=== PATIENT | male | born 1955 | race Caucasian/White ===

== ENCOUNTER 2016-10-01 08:00 | Outpatient (CLI) | payer MEDICAID | END 2016-10-01 08:01 | disposition home or self-care (01) | DX: R19.4 Change in bowel habit (principal) ==

== ENCOUNTER 2017-01-27 13:36 | Outpatient (CLI) | payer MEDICAID | END 2017-01-27 13:37 | disposition home or self-care (01) | DX: D50.9 Iron deficiency anemia, unspecified (principal) ==

== ENCOUNTER 2017-02-26 08:33 | Day surgery (SDC) | payer MEDICAID ==
[2017-02-26] MEDS ORDERED: LACTATED RINGERS 1,000 ML IV ONE ×2 (09:15→10:09)
[2017-02-26] MEDS ORDERED: MIDAZOLAM 2 MG/2 ML VIAL IVP ONE (09:41)
[2017-02-26] MEDS ORDERED: ONDANSETRON 4 MG/2 ML VIAL IVP ONE (09:41)
[2017-02-26] MEDS ORDERED: fentaNYL 100 MCG/2 ML VIAL IVP ONE (09:41)
[2017-02-26 11:24] VITALS: BP 113/82
== END 2017-02-26 08:34 | disposition home or self-care (01) ==
LOC: SDS 08:33
PROVIDERS: ATTEND Surgery
PROC: 0DB78ZX Excision of Stomach, Pylorus, Via Natural or Artificial Opening Endoscopic, Diagnostic (ICD-10-PCS; principal; 2017-02-26 09:45)
PROC: 0DBH8ZX Excision of Cecum, Via Natural or Artificial Opening Endoscopic, Diagnostic (ICD-10-PCS; 2017-02-26 09:45)
DX: R19.5 Other fecal abnormalities (principal); Z80.0 Family history of malignant neoplasm of digestive organs; K21.9 Gastro-esophageal reflux disease without esophagitis; R10.9 Unspecified abdominal pain; R19.7 Diarrhea, unspecified; I10 Essential (primary) hypertension; D50.9 Iron deficiency anemia, unspecified; K57.30 Diverticulosis of large intestine without perforation or abscess without bleeding; R12 Heartburn; K20.9 Esophagitis, unspecified; K44.9 Diaphragmatic hernia without obstruction or gangrene; R19.4 Change in bowel habit; Z90.49 Acquired absence of other specified parts of digestive tract; Z82.49 Family history of ischemic heart disease and other diseases of the circulatory system; Z88.5 Allergy status to narcotic agent; K64.8 Other hemorrhoids
CPT/HCPCS: 43239; 45380; 87081; J7120; 88305

== ENCOUNTER 2017-07-10 16:56 | Outpatient (CLI) | payer MEDICAID ==
--- NOTE | 2017-07-11 08:36 | XRAY Report ---
SUPINE ABDOMEN: 07/10/2017 CLINICAL INDICATION: History of GI camera ingestion 3 weeks ago, check for retention. FINDINGS: Supine views of the abdomen demonstrate the camera in the sigmoid colon, in the mid pelvis . Postoperative changes are noted in the abdomen. The bowel gas pattern is normal. IMPRESSION: GI CAMERA IN THE SIGMOID COLON. JOB #: [id number] EXT JOB #:[id number]
== END 2017-07-10 16:57 | disposition home or self-care (01) ==
LOC: DI 16:56
PROVIDERS: ATTEND Internal Medicine Gastroenterology
DX: T18.4XXD Foreign body in colon, subsequent encounter (principal)
CPT/HCPCS: 74000

== ENCOUNTER 2017-09-30 14:28 | Outpatient (CLI) | payer MEDICAID | END 2017-09-30 14:29 | disposition critical access hospital (66) | LOC: EMS 14:28 | PROVIDERS: ATTEND Surgery | DX: R42 Dizziness and giddiness (principal); H53.9 Unspecified visual disturbance | CPT/HCPCS: A0425; A0429 ==

== ENCOUNTER 2017-09-30 14:51 | Observation (INO) | payer MEDICAID ==
--- NOTE | 2017-09-30 15:09 | ED Physician Documentation ---
PD HPI FOCAL NEURO - Stated complaint Stated Complaint: DIZZY - History obtained from History obtained from: Patient, EMS - History of Present Illness Timing - onset: Today Timing - duration: Minutes Timing - details: Abrupt onset, Now resolved Severity of deficit: Moderate Weakness: No: Face, Arm, Hand, Leg, Foot, Right, Left Numbness: No: Face, Arm, Hand, Leg, Foot, Right, Left Associated symptoms: No: Nausea / vomiting Contributing factors: negative: Anticoagulated Baseline status: positive: A&OX3, ambulatory, indep Similar symptoms before: Has not had sx before Recently seen: Other (61-year-old male was seen in his computer when he developed multiple images of everything. He noticed this particularly bad for about 10 minutes and he became concerned and called 911.The patient is being evaluated for anemia.) - Additional information Additional information: The patient was in the library at the time of this incident occurred in the library as he was logging off of his computer. He does note that he saw multiple images he himself did not notice any weakness on one side or the other. The nurse on initial evaluation here did note the patient had some subtle weakness to the left foot and a subtle left facial droop. I did witness this left facial droop which was initially present when I walked into the room and resolved before my evaluation was done. The patient also notes that he has felt some hardness to the heel of his left foot for the past week and he has had some numbness under his lip. Review of Systems Constitutional: denies: Fever, Chills, Myalgias Eyes: reports: Other (blurring of the vision) Ears: denies: Loss of hearing, Ear pain Nose: denies: Rhinorrhea / runny nose, Congestion Throat: denies: Sore throat Cardiac: denies: Chest pain / pressure, Palpitations Respiratory: denies: Dyspnea, Cough GI: denies: Nausea, Vomiting : denies: Dysuria Skin: denies: Rash Musculoskeletal: denies: Neck pain, Back pain, Extremity pain Neurologic: denies: Generalized weakness, Focal weakness, Numbness, Difficulty speaking, Syncope, Seizure, Confused, Altered mental status, Headache, Head injury, LOC PD PAST MEDICAL HISTORY - Past Medical History Cardiovascular: Hypertension Respiratory: None Endocrine/Autoimmune: None GI: Other : None HEENT: Other Psych: Depression Musculoskeletal: None Derm: Psoriasis - Present Medications Home Medications: Ambulatory Orders Medication Instructions Recorded Confirmed Lisinopril 20 mg PO DAILY 02/25/17 09/30/17 - Allergies Allergies/Adverse Reactions: Allergies Allergy/AdvReac Type Severity Reaction Status Date / Time morphine Allergy Unknown Verified 09/30/17 14:58 - Social History Does the pt smoke?: No Smoking Status: Never smoker PD ED PE NORMAL - Vitals Vital signs reviewed: Yes (hypertensive ) - General General: Alert and oriented X 3, Well developed/nourished, Other (The patient appears anxious) - HEENT HEENT: Atraumatic, PERRL, EOMI - Neck Neck: Supple, no meningeal sign, No bony TTP - Cardiac Cardiac: RRR, Other (2/6 holosystolic murmer at LSB) - Respiratory Respiratory: No respiratory distress, Clear bilaterally - Abdomen Abdomen: Soft, Non tender - Back Back: No CVA TTP, No spinal TTP - Derm Derm: Normal color, Warm and dry, No rash - Extremities Extremities: No deformity, No edema - Neuro Neuro: Alert and oriented X 3, sales promotion coordinator 2-12 intact, No motor deficit, No sensory deficit, Normal speech Eye Opening: Spontaneous Motor: Obeys Commands Verbal: Oriented GCS Score: 15 - Psych Psych: Normal mood, Normal affect NIHSS - Time Time: 15:00 - Level of Consciousness Level of consciousness: (0) Alert, Keenly responsive LOC Questions: (0) Answers both Q's correct LOC Commands: (0) Performs both correctly - Gaze Best Gaze: (0) Normal - Visual Visual: (0) No loss - Facial Palsy Facial Palsy: (0) Normal, symmetrical movement - Motor Arms (both separate) Motor Arm (right): (0) No drift Motor Arm (left): (0) No drift - Motor Legs (both separate) Motor Leg (right): (0) No drift Motor Leg (left): (0) No drift - Limb Ataxia Limb Ataxia: (0) Absent - Sensory Sensory: (0) Normal - Best Language Best Language: (0) No aphasia - Dysarthria Dysarthria: (0) Normal - Extinction and Inattention (formally neg Extinction and inattention: (0) No abnormality - Total Score/Results Total Score/Result: 0 Results - Vitals Vitals: Vital Signs - 24 hr 01/11/1609/30/17 09/30/17 14:52 15:39 16:26 Temperature 36.6 C 36.9 C 36.8 C Heart Rate 85 84 82 Respiratory 16 14 18 Rate Blood Pressure 180/97 H 164/94 H 157/90 H O2 Saturation 100 100 99 09/30/17 17:56 Temperature Heart Rate 108 H Respiratory 27 H Rate Blood Pressure 152/80 H O2 Saturation 100 Oxygen O2 Source Room air - Labs Labs: Laboratory Tests 09/30/17 09/30/17 09/30/17 15:06 15:06 15:06 WBC 11.7 H RBC 5.03 Hgb 10.4 L Hct 33.8 L MCV 67.2 L MCH 20.7 L MCHC 30.8 L RDW 18.4 H Plt Count 365 MPV 7.5 Neut # 6.4 Lymph # 4.2 H Rankin # 1.0 Eos # 0.0 Baso # 0.0 Absolute Nucleated RBC 0.00 Nucleated RBC % 0.0 Manual Slide Review Indicated WBC Morphology 2+ REACTIVE LYMPHS Platelet Estimate NORMAL (130-450,000) Platelet Morphology 1+ LARGE PLATELETS RBC Morph Micro Appear 1+ MACROCYTOSIS Sodium 136 Potassium 3.7 Chloride 104 Carbon Dioxide 23 Anion Gap 9.0 BUN 13 Creatinine 0.8 Estimated GFR (MDRD) 98 Glucose 110 H Calcium 9.0 Total Bilirubin 0.7 AST 25 ALT 22 Alkaline Phosphatase 95 Troponin I < 0.04 Total Protein 7.7 Albumin 4.6 Globulin 3.1 Albumin/Globulin Ratio 1.5 Lipase 21 L Urine Color Urine Clarity Urine pH Ur Specific [place] Urine Protein Urine Glucose (UA) Urine Ketones Urine Occult Blood Urine Nitrite Urine Bilirubin Urine Urobilinogen Ur Leukocyte Esterase Ur Microscopic Review Urine Culture Comments 09/30/17 15:35 WBC RBC Hgb Hct MCV MCH MCHC RDW Plt Count MPV Neut # Lymph # Rankin # Eos # Baso # Absolute Nucleated RBC Nucleated RBC % Manual Slide Review WBC Morphology Platelet Estimate Platelet Morphology RBC Morph Micro Appear Sodium Potassium Chloride Carbon Dioxide Anion Gap BUN Creatinine Estimated GFR (MDRD) Glucose Calcium Total Bilirubin AST ALT Alkaline Phosphatase Troponin I Total Protein Albumin Globulin Albumin/Globulin Ratio Lipase Urine Color YELLOW Urine Clarity CLEAR Urine pH 6.0 Ur Specific [place] 1.010 Urine Protein NEGATIVE Urine Glucose (UA) NEGATIVE Urine Ketones NEGATIVE Urine Occult Blood NEGATIVE Urine Nitrite NEGATIVE Urine Bilirubin NEGATIVE Urine Urobilinogen 0.2 (NORMAL) Ur Leukocyte Esterase NEGATIVE Ur Microscopic Review NOT INDICATED Urine Culture Comments NOT INDICATED - Rads (name of study) CT head without Radiology: Prelim report reviewed (Impression: Negative nonenhanced head CT.), EMP read indepedently, See rad report PD MEDICAL DECISION MAKING - ED course Complexity details: reviewed old records, reviewed results, re-evaluated patient , considered differential, d/w patient ED course: 61-year-old male with subtle signs of TIA with visual disturbance and left- sided weakness has resolved his symptoms. CT is without evidence of bleeding. Rhythm is sinus blood pressure is mildly elevated. Dr. Dawn is consulted in the case and graciously agrees to care for the patient in the hospital . Departure - Departure Disposition: ED Place in Observation Clinical Impression: Transient ischemic attack (TIA) Qualifiers: Transient cerebral ischemia type: unspecified Qualified Code(s): G45.9 - Transient cerebral ischemic attack, unspecified Condition: Stable
[2017-09-30 15:18] LABS: BASOPHILS % (AUTO) 0.2 %; EOSINOPHILS % (AUTO) 0.4 %; HGB - HEMOGLOBIN 10.4 g/dL (14.0-18.0); LYMPHOCYTES # (AUTO) 4.2 10^3/uL (1.5-3.5); LYMPHOCYTES % (AUTO) 36.1 %; MEAN CORPUSCULAR HEMOGLOBIN 20.7 pg (27.0-31.0); MEAN CORPUSCULAR HGB CONC 30.8 g/dL (32.0-36.0); MEAN CORPUSCULAR VOLUME 67.2 fL (80.0-94.0); MEAN PLATELET VOLUME 7.5 fL (7.4-11.4); MONOCYTES % (AUTO) 8.2 %; NEUTROPHILS # (AUTO) 6.4 10^3/uL (1.5-6.6); NEUTROPHILS % (AUTO) 55.1 %; PLT - PLATELET COUNT 365 10^3/uL (130-450); RED BLOOD COUNT 5.03 10^6/uL (4.70-6.10); RED CELL DISTRIBUTION WIDTH 18.4 % (12.0-15.0); WHITE BLOOD COUNT 11.7 x10^3/uL (4.8-10.8)
[2017-09-30 15:21] LABS: ALBUMIN 4.6 g/dL (3.2-5.5); ALBUMIN/GLOBULIN RATIO 1.5 (1.0-2.2); BILIRUBIN,TOTAL 0.7 mg/dL (0.2-1.0); CREATININE 0.8 mg/dL (0.6-1.2); TOTAL PROTEIN 7.7 g/dL (6.7-8.2)
--- NOTE | 2017-09-30 15:40 | CT Preliminary Report ---
Exam: CT HEAD W/O IMPRESSION: Negative nonenhanced head CT. [facility] SITE ID: [id number]
--- NOTE | 2017-09-30 15:40 | CT Report ---
EXAM: CT HEAD EXAM DATE: 09/30/2017 03:21 PM. CLINICAL HISTORY: Stroke symptoms . COMPARISON: 01/20/2011. TECHNIQUE: Multiaxial CT images were obtained from the foramen magnum to the vertex. Reformats: Coron al. IV contrast: None. In accordance with CT protocol optimization, one or more of the following dose reduction techniques w ere utilized for this exam: automated exposure control, adjustment of mA and/or KV based on patient s ize, or use of iterative reconstructive technique. FINDINGS: Parenchyma: No intraparenchymal hemorrhage. No evidence of mass, midline shift, or CT findings of inf arction. Florez-white differentiation is distinct. Extraaxial Spaces: Normal for age. No subdural or epidural collections identified. Ventricles: Normal in size and position. Sinuses and Orbits: Imaged paranasal sinuses, orbits, and mastoids show no significant abnormality. Bones: No evidence of fracture or calvarial defect. Other: None. IMPRESSION: Negative nonenhanced head CT. [facility] Referring Provider Line: [phone] SITE ID: [id number]
[2017-09-30 15:53] LABS: PLATELET MORPHOLOGY 1+ LARGE PLATELETS (NORMAL)
[2017-09-30 15:54] LABS: PLATELET ESTIMATE, MANUAL NORMAL (130-450,000) (NORMAL)
[2017-09-30 16:00] LABS: BILIRUBIN,URINE NEGATIVE (NEGATIVE); GLUCOSE, URINE (UA) NEGATIVE (NEGATIVE); KETONES,URINE (UA) NEGATIVE (NEGATIVE); LEUKOCYTE ESTERASE, URINE NEGATIVE (NEGATIVE); NITRITE,URINE NEGATIVE (NEGATIVE); OCCULT BLOOD,URINE NEGATIVE (NEGATIVE); PROTEIN,URINE NEGATIVE (NEGATIVE); UROBILINOGEN,URINE 0.2 (NORMAL) E.U./dL (NORMAL)
[2017-09-30 16:07] LABS: CLARITY,URINE CLEAR (CLEAR)
[2017-09-30] MEDS ORDERED: TEMAZEPAM 15 MG CAPSULE PO PRN (19:40)
[2017-09-30] MEDS ORDERED: SODIUM CHLORIDE FLUSH 0.9% 10 ML SYRINGE IVP PRN (19:40)
[2017-09-30] MEDS ORDERED: ONDANSETRON ODT 4 MG TABLET TL PRN (19:40)
[2017-09-30] MEDS ORDERED: ENOXAPARIN 40 MG/0.4 ML SYRINGE SUBQ SCH (19:45)
[2017-09-30] MEDS ORDERED: SODIUM CHLORIDE 0.9% 1,000 ML IV SCH (20:00)
[2017-09-30] MEDS: ASPIRIN EC 325 MG TABLET PO SCH (21:37)
[2017-09-30] MEDS ORDERED: SODIUM CHLORIDE FLUSH 0.9% 10 ML SYRINGE IVP SCH (22:00)
--- NOTE | 2017-09-30 23:22 | HISTORY & PHYSICAL EXAMINATION ---
Chief Complaint - Chief Complaint Chief Complaint: Altered mental status History of Present Illness - Admitted From Admitted From:: Home - History of Present Illness HPI Comment/Other: Mr. Kyle Benson is a very pleasant 61-year-old male with a history of acute visual disturbances today while at the library. These were also associated with a left-sided facial droop and left leg weakness. The patient was at the library, sitting down and felt a menendez in his head. Everything went black, and he had severe diplopia with the other associated symptoms noted above.The patient called for help and was taken via EMS to the [facility] emergency department. The symptoms all resolved within about 1 hour. History - Past Medical History Cardiovascular: reports: Hypertension Respiratory: reports: None Neuro: reports: None Endocrine/Autoimmune: reports: None GI: reports: Other MULTI CARE TECHNICIAN: reports: None : reports: Other (The patient has hadIron deficiency anemia and was found to have an occult GI bleed howeverUpper and lower endoscopies have failed to show any source. The patient underwent a PillCam study however the pill became lodged in the patient's small bowel and has not been retrieved to this point.) HEENT: reports: None Psych: reports: Depression Musculoskeletal: reports: None Derm: reports: Psoriasis MRSA Hx?: No Other Past Medical History: vit D deficiency, failed pill cam study - Past Surgical History General: reports: Cholecystectomy, Hiatal hernia repair, Other (2 abdominal hernia repairs, 2 hiatal hernia repairs, Repair of a small bowel perforation) - Family & Social History Family History: Mother: , Cancer (Mother with leukemia, father with colorectal cancer, Sister with breast cancer), Father: , Cancer, Sister : Alive and Well, Brother: Alive and Well, CAD, Hyperlipidemia, Hypertension Living arrangement: At home Living Situation: Alone - Substance History Use: Uses substance without health or social issues: NONE Abuse: Recurrent use of substance despite neg consequences: NONE Dependence: Experiences withdrawal or developed tolerances: NONE - POLST Patient has POLST: No POLST Status: Full Code Meds/Allgy - Home Medications Home Medications: Ambulatory Orders Medication Instructions Recorded Confirmed Lisinopril 20 mg PO DAILY 02/25/17 09/30/17 Omeprazole [PriLOSEC] 30 mg PO DAILY PRN 09/30/17 09/30/17 - Allergies Allergies/Adverse Reactions: Allergies Allergy/AdvReac Type Severity Reaction Status Date / Time morphine Allergy Unknown Verified 09/30/17 14:58 Review of Systems - Constitutional Constitutional: denies: Fatigue, Fever, Chills, Malaise - Eyes Eyes: reports: Dipolpia. denies: Pain, Irritation - Ears, Nose & Throat Ears, Nose & Throat: denies: Ear pain, Hearing loss, Tinnitus, Vertigo, Nasal discharge, Nosebleeds - Cardiovascular Cariovascular: denies: Palpitations, Chest pain, Edema - Respiratory Respiratory: denies: Cough, Sputum production, Wheezing, Hemoptysis, SOB at rest - Gastrointestinal Gastrointestinal: denies: Abdominal pain, Abdominal distention, Constipation, Diarrhea, Change in bowel habits, Rectal bleeding - Genitourinary Genitourinary: denies: Dysuria, Frequency, Urgency, Hematuria - Musculoskeletal Musculoskeletal: denies: Muscle pain, Back pain, Muscle aches, Stiffness - Integumentary Integumentary: denies: Rash, Pruritis, Lesions, Dryness - Neurological Neurological: reports: Focal weakness. denies: General weakness, Headache, Dizziness, Numbness - Psychiatric Psychiatric: denies: Depression, Anxiety, Suicidal - Endocrine Endocrine: denies: Polyuria, Polydypsia, Polyphagia - Hematologic/Lymphatic Hematologic/Lymphatic: denies: Anemia, Bruising, Petechiae, Lymphadenopathy - All Other Systems All Other Systems: reports: Reviewed and negative Exam - Vital Signs Reviewed Vital Signs: Yes Vital Signs: Vital Signs x48h Temp Pulse Pulse Pulse Pulse Pulse Resp 09/30/17 21:41 89 90 79 09/30/17 21:13 37.2 C 80 16 09/30/17 20:28 80 18 BP BP BP BP Pulse Ox 09/30/17 21:41 173/89 H 167/102 H 161/87 H 09/30/17 21:13 162/91 H 100 09/30/17 20:28 100 - Physical Exam General Appearance: positive: No acute distress, Alert, Mild distress Eyes Bilateral: positive: Normal inspection, PERRL, EOMI ENT: positive: ENT inspection nml, Pharynx nml, No signs of dehydration Neck: positive: Nml inspection, Thyroid nml, No JVD, Trachea midline, Thyromegaly Respiratory: positive: Chest non-tender, No respiratory distress, Breath sounds nml Cardiovascular: positive: Regular rate & rhythm, Irregularly irregular, Systolic murmur Peripheral Pulses: positive: 1+ Abdomen: positive: Non-tender, No organomegaly, Nml bowel sounds, No distention. negative: Guarding, Rebound Back: positive: Nml inspection. negative: CVA tenderness (R), CVA tenderness (L ) Skin: positive: Color nml, No rash, Warm, Dry. negative: Cyanosis Extremities: positive: Non-tender, Full ROM, Nml appearance Neurologic/Psychiatric: positive: Oriented x3, CN's nml (2-12), Motor nml, Sensation nml, Mood/affect nml Conclusion/Plan - Problem List (1) Transient ischemic attack (TIA) Conclusion/Plan: Self resolving within about 1 hour. Of note is that the patient has a new murmur, we will check an echocardiogram as well as a carotid ultrasound and MRI of his brain. If all tests come back negative will release the patient tomorrow with instructions to follow-up with neurology. Qualifiers: Transient cerebral ischemia type: unspecified Qualified Code(s): G45.9 - Transient cerebral ischemic attack, unspecified - Lab Results Lab results reviewed: Yes Fish Bones: 09/30/17 15:06 09/30/17 15:06 - Diagnostic Imaging Results Diagnostic Imaging Results: positive: Final report reviewed Diagnostic Imaging Results Comments: EXAM: CT HEAD EXAM DATE: 09/30/2017 03:21 PM. CLINICAL HISTORY: Stroke symptoms . COMPARISON: 01/20/2011. TECHNIQUE: Multiaxial CT images were obtained from the foramen magnum to the vertex. Reformats: Coronal. IV contrast: None. In accordance with CT protocol optimization, one or more of the following dose reduction techniques were utilized for this exam: automated exposure control, adjustment of mA and/or KV based on patient size, or use of iterative reconstructive technique. FINDINGS: Parenchyma: No intraparenchymal hemorrhage. No evidence of mass, midline shift, or CT findings of infarction. Florez-white differentiation is distinct. Extraaxial Spaces: Normal for age. No subdural or epidural collections identified. Ventricles: Normal in size and position. Sinuses and Orbits: Imaged paranasal sinuses, orbits, and mastoids show no significant abnormality. Bones: No evidence of fracture or calvarial defect. Other: None. IMPRESSION: Negative nonenhanced head CT. Core Measures - Anticipated LOS I expect patient to be DC'd or transferred within 96 hours.: Yes - DVT/VTE - Prophylaxis VTE/DVT Device ordered at admit?: Yes
--- NOTE | 2017-09-30 23:44 | Ultrasound Preliminary Report ---
Exam: US CAROTID DOPPLER COMPLETE IMPRESSION: 1. There are scattered calcified plaques at the bilateral carotid bifurcations. 2. There is no evidence of hemodynamically significant carotid artery stenosis. 3. Vertebral artery flow is antegrade. Validated velocity measurements with angiographic measurements and velocity criteria are extrapolated from diameter data as defined by the Society of Radiologists in Ultrasound Consensus Conference Radi ology 2003; 229;340-346. [facility] SITE ID: [id number]
[2017-10-01 05:26] LABS: ALBUMIN 3.8 g/dL (3.2-5.5); ALBUMIN/GLOBULIN RATIO 1.4 (1.0-2.2); BILIRUBIN,TOTAL 0.7 mg/dL (0.2-1.0); CALCIUM 8.7 mg/dL (8.5-10.3); CREATININE 0.7 mg/dL (0.6-1.2); MAGNESIUM 2.2 mg/dL (1.7-2.8); PHOSPHORUS 4.2 mg/dL (2.5-4.6); TOTAL PROTEIN 6.6 g/dL (6.7-8.2)
[2017-10-01 05:31] LABS: CHOL/HDL RATIO 6.4 (<5.0); CHOLESTEROL 187 mg/dL; HDL CHOLESTEROL 29 mg/dL; LDL CHOLESTEROL,CALCULATED 138 mg/dL; LDL/HDL RATIO 4.8 (<3.6); VLDL CHOLESTEROL 20 mg/dL
[2017-10-01 05:32] LABS: BASOPHILS % (AUTO) 0.3 %; EOSINOPHILS # (AUTO) 0.1 10^3/uL (0.0-0.7); EOSINOPHILS % (AUTO) 0.9 %; HGB - HEMOGLOBIN 9.6 g/dL (14.0-18.0); LYMPHOCYTES # (AUTO) 2.8 10^3/uL (1.5-3.5); LYMPHOCYTES % (AUTO) 35.2 %; MEAN CORPUSCULAR HEMOGLOBIN 20.6 pg (27.0-31.0); MEAN CORPUSCULAR HGB CONC 30.7 g/dL (32.0-36.0); MEAN CORPUSCULAR VOLUME 67.2 fL (80.0-94.0); MEAN PLATELET VOLUME 7.8 fL (7.4-11.4); MONOCYTES # (AUTO) 0.9 10^3/uL (0.0-1.0); MONOCYTES % (AUTO) 11.3 %; NEUTROPHILS # (AUTO) 4.2 10^3/uL (1.5-6.6); NEUTROPHILS % (AUTO) 52.3 %; PLT - PLATELET COUNT 340 10^3/uL (130-450); RED BLOOD COUNT 4.65 10^6/uL (4.70-6.10); RED CELL DISTRIBUTION WIDTH 18.8 % (12.0-15.0)
[2017-10-01 05:33] LABS: INR 1.1 (0.8-1.2); PT - PROTHROMBIN TIME 12.9 secs (9.9-12.6)
[2017-10-01] MEDS ORDERED: ACETAMINOPHEN 325 MG TABLET PO PRN (05:33)
[2017-10-01 06:46] LABS: PLATELET ESTIMATE, MANUAL NORMAL (130-450,000) (NORMAL); PLATELET MORPHOLOGY 1+ GIANT PLATELETS (NORMAL)
[2017-10-01 06:50] LABS: HB2 TOTAL 10.2 g/dL; HEMOGLOBIN A1C 0.39 g/dL; HEMOGLOBIN A1C % 5.7 % (4.6-6.2)
[2017-10-01] MEDS ORDERED: ATORVASTATIN 40 MG TABLET PO SCH (09:00)
[2017-10-01] MEDS ORDERED: POLYETHYLENE GLYCOL 3350 17 GM PACKET PO SCH (09:00)
[2017-10-01] MEDS ORDERED: FAMOTIDINE 20 MG TABLET PO SCH (09:00)
[2017-10-01] MEDS: ASPIRIN EC 325 MG TABLET PO SCH (10:28)
[2017-10-01] MEDS ORDERED: IRON SUCROSE 200 MG in SODIUM CHLORIDE 0.9% 100ML 100 ML IV ONE (14:00)
--- NOTE | 2017-10-01 15:05 | Ultrasound Report ---
EXAM: CAROTID DOPPLER ULTRASOUND EXAM DATE: 09/30/2017 11:08 PM. CLINICAL HISTORY: Stroke. COMPARISON: None. TECHNIQUE: Real-time sonographic vascular imaging was performed by the road inspector through the caroti d arterial system with a linear transducer utilizing color-flow, Doppler flow and spectral analysis. Multiple retail service representative static images were saved for review. FINDINGS: Right: RCCA Prox: PSV 66 cm/sec. RCCA Dist: PSV 94.7 cm/sec, EDV 31.9 cm/sec. RECA: PSV 153 cm/sec. R Bulb: PSV 71.4 cm/sec, EDV 18.9 cm/sec, ICA/CCA ratio 0.8. ARNOLDO Prox: PSV 106.6 cm/sec, EDV 30.9 cm/sec, ICA/CCA ratio 1.1. ARNOLDO Mid: PSV 100.4 cm/sec, EDV 37.1 cm/sec, ICA/CCA ratio 1.1. ARNOLDO Dist: PSV 111.2 cm/sec, EDV 46.4 cm/sec, ICA/CCA ratio 1.2. RVA: PSV 47.1 cm/sec. RVA flow direction: Antegrade. Left: LCCA Prox: PSV 129 cm/sec. LCCA Dist: PSV 122.9 cm/sec, EDV 9.3 cm/sec. LECA: PSV 169.8 cm/sec. L Bulb: PSV 61 cm/sec, EDV 8.5 cm/sec, ICA/CCA ratio 0.5. LICA Prox: PSV 108.2 cm/sec, EDV 30.3 cm/sec, ICA/CCA ratio 0.9. LICA Mid: PSV 102.8 cm/sec, EDV 36.8 cm/sec, ICA/CCA ratio 0.8. LICA Dist: PSV 123.3 cm/sec, EDV 42.2 cm/sec, ICA/CCA ratio 1.0. LVA: PSV 47.6 cm/sec. LVA flow direction: Antegrade. Other: None. IMPRESSION: 1. There are scattered calcified plaques at the bilateral carotid bifurcations. 2. There is no evidence of hemodynamically significant carotid artery stenosis. 3. Vertebral artery flow is antegrade. Validated velocity measurements with angiographic measurements and velocity criteria are extrapolated from diameter data as defined by the Society of Radiologists in Ultrasound Consensus Conference Radi ology 2003; 229;340-346. [facility] Referring Provider Line: [phone] SITE ID: [id number]
--- NOTE | 2017-10-01 15:16 | DISCHARGE SUMMARY ---
Discharge Summary Admit Date: 09/30/17 Discharge Date: 10/01/17 Discharging Provider: CHRISSIE Tyler Primary Care Provider: Ziyad Carrion Code Status: Do Not Attempt Resuscitation Condition at Discharge: Good Discharge Disposition: 01 Home, Self Care - DIAGNOSES Admission Diagnoses: TIA - HPI History of Present Illness: Mr. Kyle Benson is a very pleasant 61-year-old male with a history of acute visual disturbances today while at the library. These were also associated with a left-sided facial droop and left leg weakness. The patient was at the library, sitting down and felt a menendez in his head. Everything went black, and he had severe diplopia with the other associated symptoms noted above.The patient called for help and was taken via EMS to the [facility] emergency department. The symptoms all resolved within about 1 hour. He will be observed over night and worked up for rule out TIA. - ALLERGIES Allergies/Adverse Reactions: Allergies Allergy/AdvReac Type Severity Reaction Status Date / Time morphine Allergy Unknown Verified 09/30/17 14:58 - MEDICATIONS Home Medications: Ambulatory Orders Medication Instructions Recorded Confirmed Atorvastatin [Lipitor] 40 mg PO DAILY #30 tablet 10/01/17 Ferrous Sulfate 325 mg PO BID #60 tablet 10/01/17 Lisinopril 20 mg PO DAILY #30 tablet 10/01/17 - PHYSICAL EXAM AT DISCHARGE General Appearance: positive: No acute distress, Alert Eyes Bilateral: positive: Normal inspection, PERRL ENT: positive: ENT inspection nml, Pharynx nml, No signs of dehydration Neck: positive: Nml inspection, Thyroid nml, No JVD, Trachea midline Respiratory: positive: Chest non-tender, No respiratory distress, Breath sounds nml Cardiovascular: positive: Regular rate & rhythm, No gallop, Systolic murmur, Decreased pulse(s) Peripheral Pulses: positive: 2+ Abdomen: positive: Tenderness, Guarding, Hepatomegaly, Abnml bowel sounds, Other (chronic abdominal pain from long-standing ) Back: positive: Nml inspection Skin: positive: Color nml, No rash, Warm, Dry Extremities: positive: Non-tender, Full ROM, Nml appearance, No pedal edema Neurologic/Psychiatric: positive: Oriented x3, CN's nml (2-12), Motor nml, Sensation nml, Depressed mood/affect, Other (tearful) Reflexes: Bicep (R): 3+, Bicep (L): 3+ - LABS Result Diagrams: 10/01/17 05:04 10/01/17 05:04 - DIAGNOSTIC IMAGING Diagnostic Imaging Results: Prelim report reviewed, Final report reviewed Diagnostic Imaging Results Comments: Head CT: FINDINGS: Parenchyma: No intraparenchymal hemorrhage. No evidence of mass, midline shift, or CT findings of infarction. Florez-white differentiation is distinct. Extraaxial Spaces: Normal for age. No subdural or epidural collections identified. Ventricles: Normal in size and position. Sinuses and Orbits: Imaged paranasal sinuses, orbits, and mastoids show no significant abnormality. Bones: No evidence of fracture or calvarial defect. Other: None. IMPRESSION: Negative nonenhanced head CT. Carotid dopplers: FINDINGS: Right: RCCA Prox: PSV 66 cm/sec. RCCA Dist: PSV 94.7 cm/sec, EDV 31.9 cm/sec. RECA: PSV 153 cm/sec. R Bulb: PSV 71.4 cm/sec, EDV 18.9 cm/sec, ICA/CCA ratio 0.8. ARNOLDO Prox: PSV 106.6 cm/sec, EDV 30.9 cm/sec, ICA/CCA ratio 1.1. ARNOLDO Mid: PSV 100.4 cm/sec, EDV 37.1 cm/sec, ICA/CCA ratio 1.1. ARNOLDO Dist: PSV 111.2 cm/sec, EDV 46.4 cm/sec, ICA/CCA ratio 1.2. RVA: PSV 47.1 cm/sec. RVA flow direction: Antegrade. Left: LCCA Prox: PSV 129 cm/sec. LCCA Dist: PSV 122.9 cm/sec, EDV 9.3 cm/sec. LECA: PSV 169.8 cm/sec. L Bulb: PSV 61 cm/sec, EDV 8.5 cm/sec, ICA/CCA ratio 0.5. LICA Prox: PSV 108.2 cm/sec, EDV 30.3 cm/sec, ICA/CCA ratio 0.9. LICA Mid: PSV 102.8 cm/sec, EDV 36.8 cm/sec, ICA/CCA ratio 0.8. LICA Dist: PSV 123.3 cm/sec, EDV 42.2 cm/sec, ICA/CCA ratio 1.0. LVA: PSV 47.6 cm/sec. LVA flow direction: Antegrade. Other: None. IMPRESSION: 1. There are scattered calcified plaques at the bilateral carotid bifurcations. 2. There is no evidence of hemodynamically significant carotid artery stenosis. 3. Vertebral artery flow is antegrade. MRI head: FINDINGS: There is cerebellar tonsillar ectopia on the right without a dysplastic appearance seen in the right cerebellar tonsil. Faint restricted diffusion signal on the last image of the diffusion sequence in the high anterior left frontal lobe is felt to be artifact. No definite abnormal diffusion signal with corresponding low ADC map signal is present. No abnormal magnetic susceptibility is identified in the brain parenchyma. Age appropriate prominence of the ventricles and sulci is present. No extra- axial fluid collectionis identified. No abnormal T2 or FLAIR hyperintense signal is seen in the brain parenchyma. No mass is present in either orbit. IMPRESSION: 1. No acute CVA is present on the diffusion-weighted images. 2. No intracranial mass is present. 3. 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 4. Scattered paranasal sinus mucosal thickening is seen. Retention cyst/polyp formation is seen in the left maxillary sinus. - FOLLOW UP Follow Up: MRI head: FINDINGS: There is cerebellar tonsillar ectopia on the right without a dysplastic appearance seen in the right cerebellar tonsil. Faint restricted diffusion signal on the last image of the diffusion sequence in the high anterior left frontal lobe is felt to be artifact. No definite abnormal diffusion signal with corresponding low ADC map signal is present. No abnormal magnetic susceptibility is identified in the brain parenchyma. Age appropriate prominence of the ventricles and sulci is present. No extra- axial fluid collection is identified. No abnormal T2 or FLAIR hyperintense signal is seen in the brain parenchyma. No mass is present in either orbit. IMPRESSION: 1. No acute CVA is present on the diffusion-weighted images. 2. No intracranial mass is present. 3. 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 4. Scattered paranasal sinus mucosal thickening is seen. Retention cyst/polyp formation is seen in the left maxillary sinus. - TIME SPENT Time Spent in Discharge (Minutes): 60
[2017-10-01] MEDS ORDERED: diazePAM 5 MG TABLET PO SCH (15:20)
--- NOTE | 2017-10-01 16:27 | MRI Preliminary Report ---
Exam: MRI BRAIN W/O IMPRESSION: 1. No acute CVA is present on the diffusion-weighted images. 2. No intracranial mass is present. 3. Cerebellar tonsillar ectopia seen on the right without Chiari I malformation noted. 4. Scattered paranasal sinus mucosal thickening is seen. Retention cyst/polyp formation is seen in th e left maxillary sinus [facility] SITE ID: [id number]
--- NOTE | 2017-10-01 16:37 | MRI Report ---
EXAM: MRI BRAIN WITHOUT CONTRAST EXAM DATE: 10/01/2017 03:57 PM. CLINICAL HISTORY: History of acute visual disturbances associated with a left facial droop and left l eg weakness. COMPARISON: CT head without contrast 09/30/2017. TECHNIQUE: Multiplanar, multisequence T1-weighted and fluid-sensitive MR sequences of the brain were performed. Sequences optimized for routine evaluation. Other: None. IV Contrast: None. FINDINGS: There is cerebellar tonsillar ectopia on the right without a dysplastic appearance seen in the right cerebellar tonsil. Faint restricted diffusion signal on the last image of the diffusion sequence in the high anterior le ft frontal lobe is felt to be artifact. No definite abnormal diffusion signal with corresponding low ADC map signal is present. No abnormal magnetic susceptibility is identified in the brain parenchyma. Age appropriate prominence of the ventricles and sulci is present. No extra-axial fluid collection is identified. No abnormal T2 or FLAIR hyperintense signal is seen in the brain parenchyma. No mass is present in either orbit. IMPRESSION: 1. No acute CVA is present on the diffusion-weighted images. 2. No intracranial mass is present. 3. 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 4. Scattered paranasal sinus mucosal thickening is seen. Retention cyst/polyp formation is seen in th e left maxillary sinus. [facility] Referring Provider Line: [phone] SITE ID: [id number]
--- NOTE | 2017-10-01 17:15 | Discharge Plan ---
Discharge Plan Disposition: Home, Self Care Condition: Good Prescriptions: Atorvastatin [Lipitor] 40 mg PO DAILY #30 tablet Lisinopril 20 mg PO DAILY #30 tablet Diet: Regular Activity Restrictions: No Restrictions Shower Restrictions: No Driving Restrictions: No Weight Bearing: Full Weight Additional Instructions or Follow Up instructions: You were admitted for evaluation of TIA/CVA. All testing came back negative. The iron deficiency anemia is concerning and a possible cause to your symptoms. Please do not drive until cleared by your doctor due to the severity of your vision loss. Please see PCP within one week. See an eye doctor, for a NEW evaluation. See a neurologist for further testing. Both are recommended. Please take all prescribed medications as directed. No Smoking: If you smoke, Please STOP! Call for help. Follow-up with: Ziyad Carrion MD [Primary Care Provider] -
[2017-10-01 18:10] VITALS: BP 154/96
== END 2017-10-01 18:35 | disposition home or self-care (01) ==
LOC: EDUNIT# → ED 14:51 → ICU 19:40
PROVIDERS: ADMIT Hospitalist; ATTEND Nurse Practitioner
DX: G45.9 Transient cerebral ischemic attack, unspecified (principal); I10 Essential (primary) hypertension; R01.1 Cardiac murmur, unspecified; D50.9 Iron deficiency anemia, unspecified; L40.9 Psoriasis, unspecified; Z79.899 Other long term (current) drug therapy; R29.700 NIHSS score 0; Z66 Do not resuscitate
CPT/HCPCS: 36415; 70450; 70551; 80053; 80061; 81003; 83036; 83605; 83690; 83735; 84100; 84484; 85025; 85610; 85651; 85730; 87640; 93005; 93306; 93880; 96361; 96365; 96372; 99285; A9270; G0378; J1650; J1756; 81001; 87086

== ENCOUNTER 2017-11-17 14:08 | Outpatient (CLI) | payer MEDICAID ==
[2017-11-17 19:17] LABS: ALBUMIN 4.3 g/dL (3.2-5.5); ALBUMIN/GLOBULIN RATIO 1.5 (1.0-2.2); BASOPHILS % (AUTO) 0.3 %; BILIRUBIN,TOTAL 0.7 mg/dL (0.2-1.0); CALCIUM 8.9 mg/dL (8.5-10.3); CREATININE 0.9 mg/dL (0.6-1.2); EOSINOPHILS # (AUTO) 0.1 10^3/uL (0.0-0.7); EOSINOPHILS % (AUTO) 0.7 %; HGB - HEMOGLOBIN 11.4 g/dL (14.0-18.0); LYMPHOCYTES # (AUTO) 3.4 10^3/uL (1.5-3.5); LYMPHOCYTES % (AUTO) 42.6 %; MEAN CORPUSCULAR HEMOGLOBIN 21.7 pg (27.0-31.0); MEAN CORPUSCULAR HGB CONC 30.6 g/dL (32.0-36.0); MEAN CORPUSCULAR VOLUME 71.1 fL (80.0-94.0); MEAN PLATELET VOLUME 8.1 fL (7.4-11.4); MONOCYTES # (AUTO) 0.6 10^3/uL (0.0-1.0); MONOCYTES % (AUTO) 7.6 %; NEUTROPHILS # (AUTO) 3.9 10^3/uL (1.5-6.6); NEUTROPHILS % (AUTO) 48.8 %; PLT - PLATELET COUNT 389 10^3/uL (130-450); RED BLOOD COUNT 5.22 10^6/uL (4.70-6.10); RED CELL DISTRIBUTION WIDTH 22.5 % (12.0-15.0); TOTAL PROTEIN 7.2 g/dL (6.7-8.2); WHITE BLOOD COUNT 8.1 x10^3/uL (4.8-10.8)
[2017-11-17 19:34] LABS: PLATELET ESTIMATE, MANUAL NORMAL (130-450,000) (NORMAL); PLATELET MORPHOLOGY NORMAL APPEARANCE (NORMAL)
== END 2017-11-17 14:09 | disposition home or self-care (01) ==
LOC: LAB.N 14:08
PROVIDERS: ATTEND Family Medicine
DX: D50.9 Iron deficiency anemia, unspecified (principal); Z51.81 Encounter for therapeutic drug level monitoring
CPT/HCPCS: 36415; 80053; 82728; 85025

== ENCOUNTER 2020-05-29 13:17 | Outpatient (CLI) | payer MEDICARE | END 2020-05-29 13:18 | disposition home or self-care (01) | LOC: COV 13:17 | PROVIDERS: ATTEND Family Medicine | DX: R50.9 Fever, unspecified (principal); M79.10 Myalgia, unspecified site; R53.83 Other fatigue; R09.81 Nasal congestion; Z20.828 Contact with and (suspected) exposure to other viral communicable diseases ==

== ENCOUNTER 2024-01-19 14:45 | Outpatient (CLI) | payer MEDICARE ==
[2024-01-19 17:53] LABS: BASOPHILS % (AUTO) 0.1 %; EOSINOPHILS % (AUTO) 0.5 %; HCT - HEMATOCRIT 44.4 % (42.0-52.0); HGB - HEMOGLOBIN 13.6 g/dL (14.0-18.0); LYMPHOCYTES # (AUTO) 2.5 10^3/uL (1.5-3.5); LYMPHOCYTES % (AUTO) 29.6 %; MEAN CORPUSCULAR HEMOGLOBIN 25.9 pg (27.0-31.0); MEAN CORPUSCULAR HGB CONC 30.6 g/dL (32.0-36.0); MEAN CORPUSCULAR VOLUME 84.4 fL (80.0-94.0); MONOCYTES # (AUTO) 0.8 10^3/uL (0.0-1.0); MONOCYTES % (AUTO) 9.9 %; NEUTROPHILS # (AUTO) 4.9 10^3/uL (1.5-6.6); NEUTROPHILS % (AUTO) 59.5 %; PLT - PLATELET COUNT 372 10^3/uL (130-450); RED BLOOD COUNT 5.26 10^6/uL (4.70-6.10); RED CELL DISTRIBUTION WIDTH 14.8 % (12.0-15.0); WHITE BLOOD COUNT 8.3 x10^3/uL (4.8-10.8)
[2024-01-19 18:12] LABS: ALBUMIN 4.7 g/dL (3.2-5.5); ALBUMIN/GLOBULIN RATIO 1.7 (1.0-2.2); BILIRUBIN,TOTAL 0.5 mg/dL (0.2-1.0); CREATININE 0.8 mg/dL (0.6-1.3); POTASSIUM 4.2 mmol/L (3.5-4.5); TOTAL PROTEIN 7.5 g/dL (6.4-8.9)
== END 2024-01-19 15:00 | disposition home or self-care (01) ==
LOC: LAB.N 14:45
PROVIDERS: ATTEND Family Medicine
DX: R19.7 Diarrhea, unspecified (principal)
CPT/HCPCS: 36415; 80053; 85025

== ENCOUNTER 2024-01-20 08:00 | Outpatient (CLI) | payer MEDICARE | END 2024-01-20 23:59 | disposition home or self-care (01) | LOC: LAB.R 08:00 | PROVIDERS: ATTEND Family Medicine | DX: R19.7 Diarrhea, unspecified (principal) | CPT/HCPCS: 83993; 87045; 87046; 87329; 87427; 87493 ==